=== PATIENT | male | born 1950 | race Caucasian/White ===

== ENCOUNTER → 2017-06-18 | Outpatient (CLI) | payer MEDICARE, OTHER ==
[2017-06-18 14:05] LABS: AST (GOT) 24 U/L (15-37); BICARBONATE 21.8 MEQ/L (21.0-32.0); BLOOD UREA NITROGEN 23 MG/DL (7-18); CALCIUM 8.8 MG/DL (8.5-10.1); CHLORIDE 106 MEQ/L (98-107); CREATININE 1.29 MG/DL (0.60-1.30); GLOMERULAR FILTRATION RATE 55 ML/MIN (>89); GLUCOSE,RANDOM 107 MG/DL (74-106); SODIUM (NA) 136 MEQ/L (136-145)
[2017-06-18 14:06] LABS: ALT (GPT) 37 U/L (12-78); C-REACTIVE PROTEIN LESS THAN 0.29 MG/DL (0.00-0.30)
[2017-06-18 14:08] LABS: AUTOMATED NEUTROPHIL # 5.7 TH/MM3 (1.8-7.7); BASOPHIL # 0.1 TH/MM3 (0-0.2); BASOPHIL % 0.7 % (0.0-2.0); EOSINOPHIL # 0.1 TH/MM3 (0-0.4); EOSINOPHIL % 1.4 % (0.0-4.0); HEMOGLOBIN 17.1 GM/DL (13.0-17.0); LYMPH % 13.1 % (9.0-44.0); MEAN CELL VOLUME 90.7 FL (80.0-100.0); MEAN CORPUSCULAR HEMOGLOBIN 31.7 PG (27.0-34.0); MEAN CORPUSCULAR HGB CONC 34.9 % (32.0-36.0); MONO % 9.4 % (0.0-8.0); MONOCYTE # 0.7 TH/MM3 (0-0.9); NEUT % 75.4 % (16.0-70.0); PLATELET COUNT 181 TH/MM3 (150-450); RED CELL DISTRIBUTION WIDTH 13.2 % (11.6-17.2); WHITE BLOOD COUNT 7.6 TH/MM3 (4.0-11.0)
[2017-06-18 14:32] LABS: ALKALINE PHOSPHATASE 88 U/L (45-117); TOTAL BILIRUBIN ADULT 0.7 MG/DL (0.2-1.0); TOTAL PROTEIN 6.8 GM/DL (6.4-8.2)
[2017-06-18 14:41] LABS: WESTERGREN SEDIMENTATION RATE 1 mm/hr (0-20)
[2017-06-20 21:15] LABS: ALB/GLOB RATIO (SPE) 2.15 (1.39-2.23)
== END ==
LOC: PLAB 09:35
DX: M47.9 Spondylosis, unspecified (principal); G62.9 Polyneuropathy, unspecified
CPT/HCPCS: 36415; 80053; 82607; 83036; 84165; 85025; 85306; 85652; 86038; 86140; 86617

== ENCOUNTER 2017-07-20 12:35 | Emergency (ER) | payer MEDICARE, OTHER ==
[~2017-07-20] VITALS: Ht 182.9 cm; Wt 116.6 kg
[2017-07-20 13:17] VITALS: BP 125/80; PULSE 54; RESP 18; TEMP 98.3
[2017-07-20] MEDS ORDERED: ASPI-516 CHEW (14:13)
[2017-07-20] MEDS ORDERED: ROSU10 PO (14:13)
[2017-07-20] MEDS ORDERED: ALLO100T PO (14:13)
[2017-07-20] MEDS ORDERED: BYST5TAB2 PO (14:13)
[2017-07-20] MEDS ORDERED: SODIUM CHLORIDE 0.9% FLUSH 10 ML FLUSH IVF PRN (14:15)
[2017-07-20] MEDS ORDERED: ASPIRIN 81 MG CHEW TAB PO ONE (14:15)
--- NOTE | 2017-07-20 14:18 | PD ---
HPI Chief Complaint: Cold / Flu Symptoms Time Seen by Provider: 13:46 Travel History International Travel<30 days: No Contact w/Intl Traveler<30days: No Traveled to known affect area: No History of Present Illness HPI 66-year-old male presents to the emergency room for evaluation of myalgias, malaise, sweats, chills, and nonproductive cough for the past 4 days. Patient states he has some sort of bug. He has not actually taken his temperature. Denies significant congestion or sore throat. Cough is not severe. He has associated chest pain on the left side. Denies any cardiac history. No MIs. States he hasn't had a stress test but doesn't know when the last one was. Patient states he is active. He has history of hypertension and hypercholesterolemia. [facility] Social History Tobacco Use: No Allergies-Medications (Allergen,Severity, Reaction): Coded Allergies: No Known Allergies (Unverified , 07/20/17) Reported Meds & Prescriptions Reported Meds & Active Scripts Active Reported Aspirin 81 Mg Chew 81 Mg CHEW DAILY Allopurinol 100 Mg Tab 100 Mg PO DAILY Bystolic (Nebivolol) 5 Mg Tab 5 Mg PO DAILY Crestor (Rosuvastatin Calcium) 10 Mg Tab 10 Mg PO DAILY Review of Systems Except as stated in HPI: all other systems reviewed are Neg Physical Exam Narrative GENERAL: Well-nourished, well-developed male in no acute distress. Afebrile. Ambulatory. SKIN: Focused skin assessment warm/dry. HEAD: Normocephalic. EYES: No scleral icterus. No injection or drainage. NECK: Supple, trachea midline. No JVD or lymphadenopathy. ENT: Mucosa pink and moist. Mild erythema without edema or exudates. No uvular edema. No uvular, palatal, or tonsillar deviation. Airway patent. Nasal turbinates appear normal without nasal blood, purulent drainage or septal hematoma. EARS: Bilateral pinnae and external canals appear within normal limits. Bilateral tympanic membranes without erythema, dullness or perforation. CARDIOVASCULAR: Slightly bradycardic. Regular rhythm without murmurs, gallops, or rubs. RESPIRATORY: Breath sounds equal bilaterally. No accessory muscle use. Data Data Last Documented VS Vital Signs Date Time Temp Pulse Resp B/P (MAP) Pulse Ox O2 Delivery O2 Flow Rate FiO2 07/20/17 15:25 16 97 Nasal Cannula 2.00 07/20/17 15:25 50 07/20/17 13:17 98.3 Orders Orders Electrocardiogram (07/20/17 14:01) B-Type Natriuretic Peptide (07/20/17 14:01) Ckmb (Isoenzyme) Profile (07/20/17 14:01) Complete Blood Count With Diff (07/20/17 14:01) Comprehensive Metabolic Panel (07/20/17 14:01) Prothrombin Time / Inr (Pt) (07/20/17 14:01) Act Partial Throm Time (Ptt) (07/20/17 14:01) Troponin I (07/20/17 14:01) Ecg Monitoring (07/20/17 14:01) Bilateral Bp Monitoring (07/20/17 14:01) Iv Access Insert/Monitor (07/20/17 14:01) Oximetry (07/20/17 14:01) Oxygen Administration (07/20/17 14:01) Aspirin Chew (Aspirin Chew) (07/20/17 14:15) Sodium Chloride 0.9% Flush (Ns Flush) (07/20/17 14:15) Chest, Pa & Lat (07/20/17 14:01) Influenzae A/B Antigen (07/20/17 14:09) Labs Laboratory Tests Test 07/20/17 15:10 White Blood Count 8.4 TH/MM3 Red Blood Count 5.23 MIL/MM3 Hemoglobin 15.8 GM/DL Hematocrit 47.5 % Mean Corpuscular Volume 90.9 FL Mean Corpuscular Hemoglobin 30.2 PG Mean Corpuscular Hemoglobin Concent 33.2 % Red Cell Distribution Width 12.2 % Platelet Count 170 TH/MM3 Mean Platelet Volume 8.9 FL Neutrophils (%) (Auto) 77.1 % Lymphocytes (%) (Auto) 10.2 % Monocytes (%) (Auto) 10.4 % Eosinophils (%) (Auto) 1.5 % Basophils (%) (Auto) 0.8 % Neutrophils # (Auto) 6.4 TH/MM3 Lymphocytes # (Auto) 0.9 TH/MM3 Monocytes # (Auto) 0.9 TH/MM3 Eosinophils # (Auto) 0.1 TH/MM3 Basophils # (Auto) 0.1 TH/MM3 CBC Comment AUTO DIFF Differential Comment AUTO DIFF CONFIRMED Prothrombin Time 10.9 SEC Prothromb Time International Ratio 1.0 RATIO Activated Partial Thromboplast Time 23.1 SEC Blood Urea Nitrogen 16 MG/DL Creatinine 1.20 MG/DL Random Glucose 101 MG/DL Total Protein 6.6 GM/DL Albumin 3.4 GM/DL Calcium Level 8.5 MG/DL Alkaline Phosphatase 83 U/L Aspartate Amino Transf (AST/SGOT) 23 U/L Alanine Aminotransferase (ALT/SGPT) 32 U/L Total Bilirubin 0.9 MG/DL Sodium Level 137 MEQ/L Potassium Level 3.9 MEQ/L Chloride Level 104 MEQ/L Carbon Dioxide Level 24.9 MEQ/L Anion Gap 8 MEQ/L Estimat Glomerular Filtration Rate 60 ML/MIN Total Creatine Kinase 53 U/L Troponin I LESS THAN 0.02 NG/ML B-Type Natriuretic Peptide 37 PG/ML MDM Medical Decision Making Medical Screen Exam Complete: Yes Emergency Medical Condition: Yes Medical Record Reviewed: Yes Differential Diagnosis Pneumonia, [place], CAD, bronchitis, URI, influenza Narrative Course 66-year-old male with history of hypertension and hypercholesterolemia presents to the emergency room for evaluation of myalgias, malaise, mildly productive cough, and left-sided chest pain for the past 4 days. He has had associated chills, sweats but has not actually taken his temperature. Patient is afebrile and well-appearing in the emergency room. Resting comfortably. In no distress. Lungs sounds clear and equal bilaterally. Workup was initiated to evaluate for pneumonia versus influenza. Cardiac enzymes obtained to evaluate for chest pain though this sounds pleuritic in nature. Because it has been ongoing for the past several days, one negative set is reassuring. I spoke to my attending physician, Dr. Lomas, who agrees. CBC and CMP are completely unremarkable. Troponin and BNP are unremarkable. Influenza is negative. Chest x-ray shows bilateral lower lobe atelectasis. EKG shows sinus bradycardia with a rate of [address] changes. Signed off to my attending physician. Likely viral upper respiratory infection/bronchitis. Patient is stable for outpatient follow-up. He was told to follow-up or return for worsening symptoms. He understands and agrees to plan. Diagnosis Primary Impression: Bronchitis Referrals: Primary Care Physician Additional Instructions: Rest and drink plenty of fluids. Take ibuprofen with food as directed, as needed for pain. Follow-up with a primary care physician. Return to the emergency room for worsening symptoms. Disposition: DISCHARGE HOME Condition: Stable Rozina Day Jul 20, 2017 14:18
[2017-07-20 15:10] VITALS: PULSE 50; RESP 16; O2SAT 95
--- NOTE | 2017-07-20 15:16 | RADRPT ---
EXAM DATE/TIME: 07/20/2017 14:28 [facility] COMPARISON: No previous studies available for comparison. INDICATIONS : Chest pain. MEDICAL HISTORY : None. SURGICAL HISTORY : None. ENCOUNTER: Initial ACUITY: 1 day PAIN SCORE: 6/10 LOCATION: Bilateral chest FINDINGS: There are horizontal linear areas of atelectasis or scarring in the lower lungs bilaterally, left mor e prominent than on the right. No focal areas of consolidation. The heart is normal size. Mild tor tuosity descending thoracic aorta. Both hemidiaphragms well delineated. CONCLUSION: Bilateral lower lobe linear scarring or atelectasis. Ed Marcelino MD on July 20, 2017 at 15:14 Board Certified Radiologist. This report was verified electronically.
[2017-07-20 15:25] VITALS: BP_SYST 135; BP_SYST 138; BP_DIAS 74; BP_DIAS 80; PULSE 50; RESP 16; O2SAT 97
[2017-07-20 15:25] LABS: AUTOMATED NEUTROPHIL # 6.4 TH/MM3 (1.8-7.7); BASOPHIL # 0.1 TH/MM3 (0-0.2); BASOPHIL % 0.8 % (0.0-2.0); EOSINOPHIL # 0.1 TH/MM3 (0-0.4); EOSINOPHIL % 1.5 % (0.0-4.0); HEMATOCRIT 47.5 % (39.0-51.0); LYMPH % 10.2 % (9.0-44.0); LYMPHOCYTE # 0.9 TH/MM3 (1.0-4.8); MEAN CELL VOLUME 90.9 FL (80.0-100.0); MEAN CORPUSCULAR HEMOGLOBIN 30.2 PG (27.0-34.0); MEAN CORPUSCULAR HGB CONC 33.2 % (32.0-36.0); MONO % 10.4 % (0.0-8.0); NEUT % 77.1 % (16.0-70.0); PLATELET COUNT 170 TH/MM3 (150-450); RED BLOOD COUNT 5.23 MIL/MM3 (4.50-5.90); RED CELL DISTRIBUTION WIDTH 12.2 % (11.6-17.2); WHITE BLOOD COUNT 8.4 TH/MM3 (4.0-11.0)
[2017-07-20 15:27] LABS: HEMO FLAGS AUTO DIFF
[2017-07-20 15:35] LABS: CHLORIDE 104 MEQ/L (98-107); POTASSIUM 3.9 MEQ/L (3.5-5.1); SODIUM (NA) 137 MEQ/L (136-145)
[2017-07-20 15:38] LABS: ANION GAP 8 MEQ/L (5-15); BICARBONATE 24.9 MEQ/L (21.0-32.0); BLOOD UREA NITROGEN 16 MG/DL (7-18)
[2017-07-20 15:41] LABS: ALT (GPT) 32 U/L (12-78)
[2017-07-20 15:42] LABS: AST (GOT) 23 U/L (15-37); GLOMERULAR FILTRATION RATE 60 ML/MIN (>89)
[2017-07-20 15:43] LABS: TOTAL BILIRUBIN ADULT 0.9 MG/DL (0.2-1.0)
[2017-07-20 15:44] LABS: ALKALINE PHOSPHATASE 83 U/L (45-117)
[2017-07-20 15:45] LABS: APTT (PATIENT) 23.1 SEC (24.3-30.1); PROTHROMBIN TIME - PATIENT 10.9 SEC (9.8-11.6)
[2017-07-20 15:50] LABS: CREATINE KINASE 53 U/L (39-308)
[2017-07-20 15:54] LABS: SCAN/DIFF AUTO DIFF CONFIRMED
[2017-07-20] MEDS ORDERED: PRED20 PO (16:09)
[2017-07-20] MEDS ORDERED: GUAI100S5 PO (16:09)
[2017-07-20 16:33] VITALS: BP 148/80
--- NOTE | 2017-07-20 21:06 | EKG ---
Date Performed: 07/20/2017 Time Performed: 14:14:37 PTAGE: 66 years EKG: SINUS BRADYCARDIA BORDERLINE ECG NO PREVIOUS TRACING DOCTOR: Neil Markham Interpretating Date/Time 07/20/2017 21:05:47
== END 2017-07-20 16:35 | disposition home or self-care (01) ==
LOC: PHED 12:35
DX: J40 Bronchitis, not specified as acute or chronic (principal); E78.00 Pure hypercholesterolemia, unspecified; I10 Essential (primary) hypertension
CPT/HCPCS: 71020; 80053; 82550; 83880; 84484; 85025; 85610; 85730; 87804; 93005; 99285

== ENCOUNTER 2017-11-22 20:53 | Inpatient (IN) | payer SELFPAY ==
[~2017-11-22] VITALS: Ht 182.9 cm; Wt 129.7 kg
[~2017-11-22 20:53] MED LIST: ALLO100T PO; ASPI-516 CHEW; BYST5TAB2 PO; EPINEPHrine HCL (1:10,000) 1 MG/10 ML SYRINGE IV ONE; GUAI100S5 PO; NOREPINEPHRINE 4 MG/4 ML AMP IV ONE; PRED20 PO; ROSU10 PO; SODIUM BICARBONATE 8.4% INJ 50 MEQ/50 ML SYR IV ONE
[2017-11-22 20:55] VITALS: O2SAT 0
[2017-11-22] MEDS: NOREPINEPHRINE-DEXTROSE DRIP 250 ML IV PRN (21:26)
[2017-11-22 21:34] VITALS: O2SAT 80
[2017-11-22] MEDS ORDERED: HEPARIN-D5W 25,000 U/250 ML 250 ML IV PRN ×4 (21:45→22:00)
[2017-11-22] MEDS ORDERED: HEPARIN SODIUM - IV 10,000 UNITS/10 ML VIAL IV ONE (21:45)
[2017-11-22] MEDS ORDERED: HEPARIN - 10,000 UNITS/ML IV ADDITIVE IV PUSH STA (21:57)
[2017-11-22] MEDS ORDERED: SODIUM CHLORIDE 0.9% FLUSH 10 ML FLUSH IV FLUSH PRN (22:00)
[2017-11-22] MEDS ORDERED: CHLORHEXIDINE GLUCONATE 2 % 1 PACK (2 CLOTHS) TOP PRN (22:00)
[2017-11-22] MEDS ORDERED: MISCELLANEOUS NURSING INFORMATION XX SCH (22:00)
[2017-11-22] MEDS ORDERED: SENNOSIDES 8.6 MG TAB PO PRN (22:00)
[2017-11-22] MEDS ORDERED: SODIUM CHLOR 0.9% 1000 ML INJ 1,000 ML IV ONE ×3 (22:00)
[2017-11-22] MEDS ORDERED: ACETAMINOPHEN 325 MG TAB PO PRN (22:00)
[2017-11-22] MEDS ORDERED: BISACODYL 10 MG SUPP RECTAL PRN (22:00)
[2017-11-22] MEDS ORDERED: ONDANSETRON HCL 4 MG/2 ML VIAL IV PUSH PRN (22:00)
[2017-11-22] MEDS ORDERED: RESP: ALBUTEROL 2.5 MG/IPRATROPIUM 0.5 MG NEB (PRN) INH (22:00)
[2017-11-22] MEDS ORDERED: TERBUTALINE INJ 1 MG/ML AMP SQ PRN (22:00)
[2017-11-22] MEDS ORDERED: HEPARIN 25,000 UNITS-D5W 250 ML - PREMIX IV PRN (22:00)
[2017-11-22] MEDS ORDERED: MORPHINE SULFATE 4 MG/ML INJ IV PUSH PRN (22:00)
[2017-11-22] MEDS ORDERED: LACTULOSE SYRUP 20 GM/30 ML CUP PO PRN (22:00)
[2017-11-22] MEDS: RESP: ALBUTEROL 2.5 MG/IPRATROPIUM 0.5 MG NEB (SCH) INH (22:00)
[2017-11-22] MEDS ORDERED: LORazepam 2 MG/ML VIAL IV PUSH PRN (22:00)
[2017-11-22] MEDS ORDERED: MAGNESIUM HYDROXIDE SUSP 30 ML CUP PO PRN (22:00)
--- NOTE | 2017-11-22 22:15 | HHI.HP ---
HPI Service Critical Care Medicine Primary Care Physician Unknown Admission Diagnosis Postarrest, respiratory failure Diagnosis: Travel History International Travel<30 Days: No Contact w/Intl Traveler <30 Da: No Traveled to Known Affected Are: No History of Present Illness 67-year-old gentleman was brought as a cardiac arrest. According to chart review and report the patient has a history of hypertension. He has been having breathing problems for past couple of months, possibly some hemoptysis. [place]. He was at the [employer] when he got more short of breath walking up the stairs. EMS arrived and found him find him short of breath or respiratory difficulties. He was intubated by EMS. In route he lost pulses and they started CPR. Has been PEA since that time. In the emergency department he underwent prolonged CPR before he regained spontaneous circulation. The patient received a TPA infusion during the CPR since the pulmonary emboli was highly suspected. This was confirmed by CT angiogram obtained shortly after. Review of Systems ROS Unobtainable patient is comatose and intubated Past Family Social History Allergies: Coded Allergies: No Allergy Information Available (Unverified , 11/22/17) Past Medical History Unobtainable Past Surgical History Unobtainable Reported Medications Unobtainable Active Ordered Medications Current Medications Medications (Trade) Dose Ordered Sig/Gurdeep Route PRN Reason Start Time Stop Time Status Last Admin Dose Admin Norepinephrine Bitartrate 250 ml @ 7.5 mls/hr TITRATE PRN IV Blood pressure management 11/22/17 22:00 11/22/17 21:26 Terbutaline Sulfate (Brethine Inj) 1 mg UNSCH PRN SQ For Extravasation 11/22/17 22:00 Heparin Sodium (Porcine) (Heparin Inj) 5,000 units UNSCH PRN IV PUSH APTT LESS THAN 25 11/23/17 04:00 Heparin Sodium (Porcine) (Heparin Inj) 2,500 units UNSCH PRN IV PUSH APTT 25 TO 39 11/23/17 04:00 Heparin Sodium/ Dextrose 250 ml @ 18 mls/hr TITRATE PRN IV Coagulation Management 11/22/17 22:00 11/22/17 22:43 Sodium Chloride (NS Flush) 2 ml UNSCH PRN IV FLUSH FLUSH AFTER USING IV ACCESS 11/22/17 22:00 Sodium Chloride (NS Flush) 2 ml BID IV FLUSH 11/23/17 09:00 Acetaminophen (Tylenol) 650 mg Q6H PRN PO PAIN 1-5 AND/OR FEVER >101F 11/22/17 22:00 Morphine Sulfate (Morphine Inj) 2 mg Q2H PRN IV PUSH PAIN SCALE 6 TO 10 11/22/17 22:00 Famotidine (Pepcid Inj) 20 mg Q12HR IV PUSH 11/23/17 09:00 Lorazepam (Ativan Inj) 1 mg Q1H PRN IV PUSH Agitation/Sedation 11/22/17 22:00 Artificial Tears (Tears Naturale Opth Soln) 1 drop TID EACH EYE 11/23/17 09:00 Ondansetron HCl (Zofran Inj) 4 mg Q6H PRN IV PUSH NAUSEA OR VOMITING 11/22/17 22:00 Albuterol/ Ipratropium (Duoneb Neb) 1 ampule Q6HR NEB INH 11/22/17 22:00 Albuterol/ Ipratropium (Duoneb Neb) 1 ampule Q2HR NEB PRN INH WHEEZING 11/22/17 22:00 Miscellaneous Information 1 Q361D XX 11/22/17 22:00 11/22/17 22:00 Chlorhexidine Gluconate (Chlorhexidine 2% Cloth) 3 pack Taper DAILY@04 TOP 11/23/17 04:00 11/19/18 03:59 Chlorhexidine Gluconate (Chlorhexidine 2% Cloth) 3 pack UNSCH PRN TOP HYGIENIC CARE 11/22/17 22:00 Senna/Docusate Sodium (Paulina-Colace) 1 tab BID PO 11/23/17 09:00 Magnesium Hydroxide (Milk Of Magnesia Liq) 30 ml Q12H PRN PO Mild constipation 11/22/17 22:00 Sennosides (Senokot) 17.2 mg Q12H PRN PO Moderate constipation 11/22/17 22:00 Bisacodyl (Dulcolax Supp) 10 mg DAILY PRN RECTAL SEVERE CONSITIPATION 11/22/17 22:00 Lactulose (Lactulose Liq) 30 ml DAILY PRN PO SEVERE CONSITIPATION 11/22/17 22:00 Chlorhexidine Gluconate (Peridex 0.12% Liq) 15 ml BID@08,20 MT 11/23/17 08:00 Midazolam HCl 100 ml @ 2 mls/hr TITRATE PRN IV SEDATION 11/22/17 23:00 Fentanyl Citrate 250 ml @ 5 mls/hr TITRATE PRN IV SEDATION 11/22/17 23:00 11/23/17 01:36 Sodium Bicarbonate 150 meq/Dextrose 1,150 ml @ 100 mls/hr [id number] IV 11/22/17 23:00 11/23/17 00:38 Propofol 100 ml @ 0 mls/hr TITRATE PRN IV SEDATION 11/22/17 22:30 11/22/17 22:34 Family History Unobtainable Social History Unobtainable Physical Exam Vital Signs Vital Signs Date Time Temp Pulse Resp B/P (MAP) Pulse Ox O2 Delivery O2 Flow Rate FiO2 11/23/17 01:11 139 94/64 11/22/17 23:54 100 100 Physical Exam GENERAL: Elderly obese gentleman, cyanotic, on respiratory support SKIN: Warm and dry. HEAD: Normocephalic. EYES: No scleral icterus. No injection or drainage. NECK: Supple, trachea midline. No JVD or lymphadenopathy. CARDIOVASCULAR: Regular rate and rhythm without murmurs, gallops, or rubs. RESPIRATORY: Breath sounds equal bilaterally. No accessory muscle use. GASTROINTESTINAL: Abdomen soft, non-tender, nondistended. MUSCULOSKELETAL: No cyanosis, or edema. BACK: Nontender without obvious deformity. NEURO EXAM: GCS: 3T Mental Status: The patient is comatose and intubated. Pupils are 3 mm and brisk bilaterally Laboratory Laboratory Tests Test 11/22/17 21:45 11/22/17 21:50 Caprini VTE Risk Assessment Caprini VTE Risk Assessment: Mod/High Risk (score >= 2) Caprini Risk Assessment Model Point Value = 1 Point Value = 2 Point Value = 3 Point Value = 5 Age 41-60 Minor surgery BMI > 25 kg/m2 Swollen legs Varicose veins or History of unexplained or recurrent spontaneous Oral contraceptives or hormone replacement Sepsis (< 1 month) Serious lung disease, including pneumonia (< 1 month) Abnormal pulmonary function Acute myocardial infarction Congestive heart failure (< 1 month) History of inflammatory bowel disease Medical patient at bed rest Age 61-74 Arthroscopic surgery Major open surgery (> 45 min) Laparoscopic surgery (> 45 min) Malignancy Confined to bed (> 72 hours) Immobilizing plaster cast Central venous access Age >= 75 History of VTE Family history of VTE Factor V Leiden Prothrombin [id number] Lupus anticoagulant Anticardiolipin antibodies Elevated serum homocysteine Heparin-induced thrombocytopenia Other congenital or acquired thrombophilia Stroke (< 1 month) Elective arthroplasty Hip, pelvis, or leg fracture Acute spinal cord injury (< 1 month) Prophylaxis Regimen Total Risk Factor Score Risk Level Prophylaxis Regimen 0-1 Low Early ambulation 2 Moderate Order ONE of the following: *Sequential Compression Device (SCD) *Heparin 5000 units SQ BID 3-4 Higher Order ONE of the following medications: *Heparin 5000 units SQ TID *Enoxaparin/Lovenox 40 mg SQ daily (WT < 150 kg, CrCl > 30 mL/min) *Enoxaparin/Lovenox 30 mg SQ daily (WT < 150 kg, CrCl > 10-29 mL/min) *Enoxaparin/Lovenox 30 mg SQ BID (WT < 150 kg, CrCl > 30 mL/min) AND/OR *Sequential Compression Device (SCD) 5 or more Highest Order ONE of the following medications: *Heparin 5000 units SQ TID (Preferred with Epidurals) *Enoxaparin/Lovenox 40 mg SQ daily (WT < 150 kg, CrCl > 30 mL/min) *Enoxaparin/Lovenox 30 mg SQ daily (WT < 150 kg, CrCl > 10-29 mL/min) *Enoxaparin/Lovenox 30 mg SQ BID (WT < 150 kg, CrCl > 30 mL/min) AND *Sequential Compression Device (SCD) Assessment and Plan Assessment and Plan Respiratory failure Multiple bilateral pulmonary emboli -Status post TPA administration -Followed by heparin drip per protocol -2D echo pending -Continue mechanical ventilation -Vent bundle Cardiogenic shock -Levophed and vasopressin to keep MAP above 65 -2D echo -Monitor series of troponins and EKG Lactic acidosis -Due to above -Monitor trend -IV hydration Acute kidney injury -Dehydration -Unknown baseline -Strict I's and O -IV fluid resuscitation -Monitor trend of creatinine and electrolyte DVT GI prophylaxis -Desmond's and SCDs -Heparin drip -Pepcid Critical Care: The total critical care time was 35 minutes. Time to perform other separately billable procedures was not included in the critical care time. Adelfo Wheatley MD Nov 22, 2017 22:15
--- NOTE | 2017-11-22 22:18 | RADRPT ---
EXAM DATE/TIME: 11/22/2017 21:53 [facility] COMPARISON: No previous studies available for comparison. INDICATIONS : Post procedure. MEDICAL HISTORY : None. SURGICAL HISTORY : None. ENCOUNTER: Initial ACUITY: 1 day PAIN SCORE: Non-responsive. LOCATION: Bilateral chest FINDINGS: Endotracheal tube tip at the inferior margin of the clavicles. Lungs are clear. Cardiomegaly. Osseous structures are intact. CONCLUSION: ET tube as above. Lang Zabala MD on November 22, 2017 at 22:15 Board Certified Radiologist. This report was verified electronically.
[2017-11-22 22:27] LABS: AUTOMATED NEUTROPHIL # 5.6 TH/MM3 (1.8-7.7); BASOPHIL % 0.5 % (0.0-2.0); EOSINOPHIL # 0.1 TH/MM3 (0-0.4); EOSINOPHIL % 1.1 % (0.0-4.0); HEMATOCRIT 40.1 % (39.0-51.0); HEMOGLOBIN 12.9 GM/DL (13.0-17.0); LYMPHOCYTE # 3.5 TH/MM3 (1.0-4.8); MEAN CELL VOLUME 97.5 FL (80.0-100.0); MEAN CORPUSCULAR HEMOGLOBIN 31.4 PG (27.0-34.0); MEAN CORPUSCULAR HGB CONC 32.2 % (32.0-36.0); MEAN PLATELET VOLUME 8.5 FL (7.0-11.0); MONO % 4.9 % (0.0-8.0); MONOCYTE # 0.5 TH/MM3 (0-0.9); NEUT % 57.5 % (16.0-70.0); PLATELET COUNT 88 TH/MM3 (150-450); RED BLOOD COUNT 4.11 MIL/MM3 (4.50-5.90); RED CELL DISTRIBUTION WIDTH 14.5 % (11.6-17.2); WHITE BLOOD COUNT 9.7 TH/MM3 (4.0-11.0)
[2017-11-22] MEDS ORDERED: PROPOFOL 1000 MG/100 ML INJ 100 ML IV PRN (22:30)
--- NOTE | 2017-11-22 22:32 | PD ---
HPI Chief Complaint: Code Blue Time Seen by Provider: 21:41 Travel History International Travel<30 days: No Contact w/Intl Traveler<30days: No Traveled to known affect area: No History of Present Illness HPI This is an approximately [age]bf[age]-old man, brought in in cardiac arrest. According to EMS, patient has a history of hypertension only. Been having some breathing problems in the past couple months, possibly some hemoptysis. [place] from [place]. He was at the [facility] [place] when he got more short of breath walking up the stairs. EMS arrived to find him short of breath or respiratory difficulties. He was intubated by EMS. In route he lost pulses and they started CPR. Has been PEA since that time. No other history is available. History Past Medical History Narrative Medical Hypertension Social History Tobacco Use: No Allergies-Medications (Allergen,Severity, Reaction): Coded Allergies: No Allergy Information Available (Unverified , 11/22/17) Review of Systems Except as stated in HPI: all other systems reviewed are Neg Physical Exam Narrative GENERAL: Elderly cyanotic obese male. Obtunded. SKIN: Mottled and cool. HEAD: Atraumatic. Normocephalic. EYES: Pupils equal and round. No scleral icterus. No injection or drainage. ENT: No nasal bleeding or discharge. Mucous membranes pink and moist. NECK: Trachea midline. No JVD. CARDIOVASCULAR: PEA. Regular narrow rhythm. RESPIRATORY: Some spontaneous respiratory effort. GASTROINTESTINAL: Abdomen soft, non-tender, nondistended. Hepatic and splenic margins not palpable. MUSCULOSKELETAL: No obvious deformities. Asymmetric edema, especially the right lower extremity NEUROLOGICAL: Obtunded. Data Data Last Documented VS Vital Signs Date Time Temp Pulse Resp B/P (MAP) Pulse Ox O2 Delivery O2 Flow Rate FiO2 11/22/17 21:34 80 100 11/22/17 21:26 122 133/89 Orders Orders Cbc No Diff, Includes Plts (11/25/17 06:00) Chest, Single Ap (11/22/17 ) Ct Pulmonary Angiogram (11/22/17 ) Iv Access Insert/Monitor (11/22/17 21:46) Complete Blood Count With Diff (11/22/17 21:46) Comprehensive Metabolic Panel (11/22/17 21:46) Arterial Blood Gas (Abg) (11/22/17 ) Troponin I (11/22/17 21:46) Admit Order (Ed Use Only) (11/22/17 ) Electrocardiogram (11/22/17 ) ^ Infusion (11/22/17 ) Norepinephrine-Dextrose Drip (Levophed-D (11/22/17 22:00) Terbutaline Inj (Brethine Inj) (11/22/17 22:00) Lactic Acid Sepsis Protocol (11/22/17 21:47) Minoo-Gastric Tube Insert/Mon (11/22/17 21:48) Sodium Chlor 0.9% 1000 Ml Inj (Ns 1000 M (11/22/17 22:00) Sodium Chlor 0.9% 1000 Ml Inj (Ns 1000 M (11/22/17 22:00) Sodium Chlor 0.9% 1000 Ml Inj (Ns 1000 M (11/22/17 22:00) Labs Laboratory Tests Test 11/22/17 21:40 11/22/17 21:45 Blood Gas Puncture Site ART LINE Blood Gas Patient Temperature 98.6 Blood Gas HCO3 11 mmol/L Blood Gas Base Excess -20.6 mmol/L Blood Gas Oxygen Saturation 88 % Arterial Blood pH 6.82 Arterial Blood Partial Pressure CO2 72 mmHg Arterial Blood Partial Pressure O2 101 mmHG Arterial Blood Oxygen Content 16.0 Vol % Arterial Blood Carboxyhemoglobin 0.0 % Arterial Blood Methemoglobin 0.8 % Blood Gas Hemoglobin 12.9 G/DL Oxygen Delivery Device VENTILATOR Blood Gas Ventilator Setting AC/16/600/8 PEEP Blood Gas Inspired Oxygen 100 % White Blood Count 9.7 TH/MM3 Red Blood Count 4.11 MIL/MM3 Hemoglobin 12.9 GM/DL Hematocrit 40.1 % Mean Corpuscular Volume 97.5 FL Mean Corpuscular Hemoglobin 31.4 PG Mean Corpuscular Hemoglobin Concent 32.2 % Red Cell Distribution Width 14.5 % Platelet Count 88 TH/MM3 Mean Platelet Volume 8.5 FL Neutrophils (%) (Auto) 57.5 % Lymphocytes (%) (Auto) 36.0 % Monocytes (%) (Auto) 4.9 % Eosinophils (%) (Auto) 1.1 % Basophils (%) (Auto) 0.5 % Neutrophils # (Auto) 5.6 TH/MM3 Lymphocytes # (Auto) 3.5 TH/MM3 Monocytes # (Auto) 0.5 TH/MM3 Eosinophils # (Auto) 0.1 TH/MM3 Basophils # (Auto) 0.0 TH/MM3 CBC Comment AUTO DIFF Differential Total Cells Counted 100 Neutrophils % (Manual) 43 % Band Neutrophils % 8 % Lymphocytes % 37 % Monocytes % 5 % Eosinophils % 1 % Basophils % 1 % Neutrophils # (Manual) 5.4 TH/MM3 Metamyelocytes 3 % Myelocytes 2 % Differential Comment FINAL DIFF MANUAL Atypical Lymphocytes % Platelet Estimate LOW Platelet Morphology Comment NORMAL Prothrombin Time 35.4 SEC Prothromb Time International Ratio 3.5 RATIO Activated Partial Thromboplast Time 128.8 SEC MDM Medical Decision Making Medical Screen Exam Complete: Yes Emergency Medical Condition: Yes Interpretation(s) Review of EKG: Sinus tachycardia, right bundle branch block with deep as well as in 1 to could suggest RV strain, lateral ST depressions it could suggest myocardial injury and ischemia. Chest x-ray: Endotracheal tube at the inferior margin of the clavicles. LABS: AB.8 2/101/11, base excess -20 Differential Diagnosis Hypotension, pneumothorax, tamponade, PE, other Narrative Course Patient arrived in cardiac arrest. History was shortness of breath and hemoptysis for a couple weeks, with worsening shortness of breath today, intubated on scene, and then PEA arrest in route. Patient's markedly cyanotic, maintains narrow complex regular heart rate PEA. Suspicious for PE. Continued ACLS. Verify tube placement. Perform bedside ultrasound showed no pneumothorax , heart with empty LV, possibly dilated RV, weak squeeze, no AAA, no fluid in the abdomen. Given concern for PE in the setting of PEA arrest, patient was bolused 50 mg of IV TPA, followed by a second bolus of IV TPA 15 minutes later. High-quality CPR was continued. Patient was given IV fluids, continued epinephrine. We also did a "dirty epi "drip. Patient maintain pulse ox in the 70s, end-tidal CO2 initially in the teens. Following TPA end-tidal CO2 increase in his 20s and 30s, the patient still not without palpable pulses. Continued high-quality CPR, epinephrine, and Ambu bag ventilation. After about 40 minutes of arrival to the emergency department, 10 minutes after the second bolus of TPA, patient regained pulses. Left femoral arterial line was placed without difficulty. I felt this was necessary despite the TPA because of his marked hemodynamic instability. Epinephrine drip was switched for a norepinephrine drip. I spoke with Dr. Wheatley with the ICU. Patient was taken to CT scan which confirmed diffuse pulmonary emboli, and then taken to the ICU. Spoke with adult son, Raymond, is the healthcare proxy. Critical Care Narrative Aggregate critical care time was 75 minutes. Time to perform other separately billable procedures was not included in the critical care time. My time did not include minutes spent treating any other patients simultaneously or on activities that did not directly contribute to the patient's treatment. The services I provided to this patient were to treat and/or prevent clinically significant deterioration that could result in: , disability, unrecognized PE, hypoxic respiratory failure, other I provided critical care services requiring my management, as noted below: Chart data review, documentation time, medication orders and management, vital sign assessments/reviewing monitor data, ordering and reviewing lab tests, ordering and interpreting/reviewing x-rays and diagnostic studies, care of the patient and discussion of the patient with the admitting physicians. Diagnosis Primary Impression: Pulmonary embolism Additional Impression: Cardiac arrest Admitting Information Admitting Physician Requests: Admit Nam Moss MD Nov 22, 2017 22:32
[2017-11-22 22:37] LABS: INTERNATIONAL NORMALIZED RATIO 3.5 RATIO; PROTHROMBIN TIME - PATIENT 35.4 SEC (9.8-11.6)
[2017-11-22 22:42] LABS: ALBUMIN 2.2 GM/DL (3.4-5.0); BICARBONATE 15.5 MEQ/L (21.0-32.0); CALCIUM-PROTEIN CORRECTED 8.8 MG/DL (8.5-10.1); CREATININE 2.02 MG/DL (0.60-1.30); TOTAL BILIRUBIN ADULT 0.3 MG/DL (0.2-1.0); TOTAL PROTEIN 3.9 GM/DL (6.4-8.2); TROPONIN I 0.07 NG/ML (0.02-0.05)
[2017-11-22] MEDS ORDERED: SODIUM BICARBONATE 8.4% INJ 150 MEQ in DEXTROSE 5% IN WATE 1000ML INJ 1,000 ML IV SCH ×2 (23:00)
[2017-11-22] MEDS ORDERED: MIDAZOLAM 100 MG/100 ML INJ 100 ML IV PRN (23:00)
[2017-11-22 23:01] LABS: LACTIC ACID SEPSIS PROTOCOL 17.4 mmol/L (0.4-2.0)
[2017-11-22 23:28] LABS: BANDS 8 % (0-6); BASOPHILS 1 % (0-2); LYMPHOCYTES 37 % (9-44); METAMYELOCYTES 3 % (0-1); MONOCYTES 5 % (0-8); MYELOCYTES 2 % (0-0); NEUTROPHIL # MANUAL DIFF 5.4 TH/MM3 (1.8-7.7); POLYS (SEG NEUTROPHILS) 43 % (16-70)
[2017-11-22] MEDS ORDERED: IODIXANOL 320 MG/ML 10 ML VIAL (for Rad CT) IVCONTRAST ONE (23:35)
--- NOTE | 2017-11-22 23:43 | RADRPT ---
EXAM DATE/TIME: 11/22/2017 23:27 [facility] COMPARISON: No previous studies available for comparison. INDICATIONS : Short of breath. Code blue. IV CONTRAST: 75 cc Visipaque (iodixanol) IV RADIATION DOSE: 34.46 CTDIvol (mGy) MEDICAL HISTORY : Hypertension. SURGICAL HISTORY : None. ENCOUNTER: Initial ACUITY: 1 day PAIN SCALE: Non-responsive LOCATION: chest TECHNIQUE: Volumetric scanning of the chest was performed using a pulmonary embolism protocol MIP images were re constructed. Using automated exposure control and adjustment of the mA and/or kV according to patien t size, radiation dose was kept as low as reasonably achievable to obtain optimal diagnostic quality images. DICOM format image data is available electronically for review and comparison. Follow-up recommendations for detected pulmonary nodules are based at a minimum on nodule size and pa tient risk factors according to Fleischner Society Guidelines. FINDINGS: There are numerous pulmonary emboli in the lungs bilaterally. There is basilar dependent atelectasis. No significant effusion. No pneumothorax. No adenopathy. Mild coronary calcifications. No acute find ings in the upper abdomen. Small amount free fluid around the liver. CONCLUSION: 1. Numerous bilateral pulmonary emboli with basilar dependent atelectasis in the lungs. Fer Nielsen MD on November 22, 2017 at 23:39 Board Certified Radiologist. This report was verified electronically.
[2017-11-22 23:54] VITALS: O2SAT 100
[2017-11-23] VITALS (13 sets, daily range): BP systolic 71–93; BP diastolic 32–65; PULSE 129–148; RESP 30–41; TEMP 100.2–100.6; O2SAT 87–100
[2017-11-23 00:37] LABS: HEMATOCRIT 49.1 % (39.0-51.0); HEMOGLOBIN 16.1 GM/DL (13.0-17.0); MEAN CELL VOLUME 93.1 FL (80.0-100.0); MEAN CORPUSCULAR HEMOGLOBIN 30.5 PG (27.0-34.0); MEAN CORPUSCULAR HGB CONC 32.7 % (32.0-36.0); MEAN PLATELET VOLUME 8.2 FL (7.0-11.0); PLATELET COUNT 244 TH/MM3 (150-450); RED BLOOD COUNT 5.28 MIL/MM3 (4.50-5.90); RED CELL DISTRIBUTION WIDTH 14.1 % (11.6-17.2); WHITE BLOOD COUNT 27.6 TH/MM3 (4.0-11.0)
[2017-11-23 01:03] LABS: HEMATOCRIT 49.8 % (39.0-51.0); HEMOGLOBIN 16.8 GM/DL (13.0-17.0); MEAN CELL VOLUME 91.1 FL (80.0-100.0); MEAN CORPUSCULAR HEMOGLOBIN 30.7 PG (27.0-34.0); MEAN CORPUSCULAR HGB CONC 33.7 % (32.0-36.0); PLATELET COUNT 234 TH/MM3 (150-450); RED BLOOD COUNT 5.47 MIL/MM3 (4.50-5.90); RED CELL DISTRIBUTION WIDTH 14.2 % (11.6-17.2); WHITE BLOOD COUNT 25.3 TH/MM3 (4.0-11.0)
[2017-11-23 01:17] LABS: INTERNATIONAL NORMALIZED RATIO 3.6 RATIO; PROTHROMBIN TIME - PATIENT 36.6 SEC (9.8-11.6)
[2017-11-23] MEDS: fentaNYL DRIP 250 ML IV PRN ×2 (01:36→14:59)
[2017-11-23 01:58] LABS: INTERNATIONAL NORMALIZED RATIO 3.5 RATIO; PROTHROMBIN TIME - PATIENT 35.2 SEC (9.8-11.6)
[2017-11-23] MEDS: SODIUM CHLOR 0.9% 1000 ML INJ 1,000 ML IV SCH ×3 (02:20→04:41)
[2017-11-23] MEDS ORDERED: VASOPRESSIN 40 U/D5W 100 ML Shock/septic shock, do NOT titrate until taper off IV SCH ×2 (02:30)
[2017-11-23] MEDS: RESP: ALBUTEROL 2.5 MG/IPRATROPIUM 0.5 MG NEB (SCH) INH ×2 (03:28→09:25)
[2017-11-23] MEDS ORDERED: CHLORHEXIDINE GLUCONATE 2 % 1 PACK (2 CLOTHS) TOP SCH (04:00)
[2017-11-23] MEDS ORDERED: HEPARIN - 10,000 UNITS/ML IV ADDITIVE IV PUSH PRN ×2 (04:00→15:15)
[2017-11-23] MEDS ORDERED: HEPARIN SODIUM - IV 10,000 UNITS/10 ML VIAL IV PUSH PRN ×2 (04:00→15:15)
[2017-11-23 04:06] LABS: AUTOMATED NEUTROPHIL # 23.6 TH/MM3 (1.8-7.7); BASOPHIL # 0.1 TH/MM3 (0-0.2); BASOPHIL % 0.3 % (0.0-2.0); EOSINOPHIL % 0.2 % (0.0-4.0); HEMATOCRIT 47.4 % (39.0-51.0); LYMPH % 5.5 % (9.0-44.0); LYMPHOCYTE # 1.4 TH/MM3 (1.0-4.8); MEAN CELL VOLUME 91.6 FL (80.0-100.0); MEAN CORPUSCULAR HEMOGLOBIN 30.8 PG (27.0-34.0); MEAN CORPUSCULAR HGB CONC 33.7 % (32.0-36.0); MEAN PLATELET VOLUME 8.1 FL (7.0-11.0); MONO % 1.9 % (0.0-8.0); MONOCYTE # 0.5 TH/MM3 (0-0.9); NEUT % 92.1 % (16.0-70.0); PLATELET COUNT 216 TH/MM3 (150-450); RED BLOOD COUNT 5.18 MIL/MM3 (4.50-5.90); RED CELL DISTRIBUTION WIDTH 14.2 % (11.6-17.2); WHITE BLOOD COUNT 25.7 TH/MM3 (4.0-11.0)
--- NOTE | 2017-11-23 04:06 | RADRPT ---
EXAM DATE/TIME: 11/23/2017 03:53 [facility] COMPARISON: CHEST SINGLE AP, November 22, 2017, 21:53. INDICATIONS : Right internal jugular central line placement. MEDICAL HISTORY : None. SURGICAL HISTORY : None. ENCOUNTER: Subsequent ACUITY: 2 days PAIN SCORE: Non-responsive. LOCATION: Right chest FINDINGS: Endotracheal tube in good position. Right central line superior vena cava. NG in stomach. Mild basal airspace disease. No significant effusion. No pneumothorax. CONCLUSION: 1. Mild basilar atelectasis. Right central line in superior vena cava. No effusion or pneumothorax. Fer Nielsen MD on November 23, 2017 at 4:03 Board Certified Radiologist. This report was verified electronically.
[2017-11-23 04:42] LABS: ALBUMIN 2.6 GM/DL (3.4-5.0); BICARBONATE 15.4 MEQ/L (21.0-32.0); CALCIUM 6.3 MG/DL (8.5-10.1); CALCIUM-PROTEIN CORRECTED 7.5 MG/DL (8.5-10.1); CREATININE 2.45 MG/DL (0.60-1.30); MAGNESIUM 1.5 MG/DL (1.5-2.5); PHOSPHORUS 2.4 MG/DL (2.5-4.9); TOTAL PROTEIN 4.6 GM/DL (6.4-8.2)
[2017-11-23 04:51] LABS: TROPONIN I 10.3 NG/ML (0.02-0.05)
--- NOTE | 2017-11-23 04:52 | PD.PROCEDR ---
Procedure Note Procedure Central line placement A time-out was completed verifying correct patient, procedure, site, positioning , and special equipment if applicable. The patient was placed in a dependent position appropriate for central line placement based on the vein to be cannulated. The patients right neck was prepped and draped in sterile fashion. 1% Lidocaine was used to anesthetize the surrounding skin area. A triple lumen 9 -[place] Cordis catheter was introduced into the the internal jugular vein using the Seldinger technique and under ultrasound guidance. The catheter was threaded smoothly over the guide wire and appropriate blood return was obtained. Each lumen of the catheter was evacuated of air and flushed with sterile saline. The catheter was then sutured in place to the skin and a sterile dressing applied. Perfusion to the extremity distal to the point of catheter insertion was checked and found to be adequate. Estimated Blood Loss: 1ml The patient tolerated the procedure well and there were no complications. Adelfo Wheatley MD Nov 23, 2017 4:52 am
[2017-11-23] MEDS ORDERED: SODIUM CHLOR 0.9% 1000 ML INJ 3,000 ML IV ONE (05:00)
[2017-11-23] MEDS: NOREPINEPHRINE-DEXTROSE DRIP 250 ML IV PRN ×4 (05:52→14:35)
[2017-11-23] MEDS ORDERED: SODIUM BICARBONATE 8.4% INJ 50 MEQ/50 ML SYR IV PUSH ONE ×2 (07:00→15:15)
[2017-11-23] MEDS ORDERED: MAGNESIUM SULFATE 1 GM PREMIX 100 ML IV ONE ×2 (07:00→10:00)
[2017-11-23] MEDS ORDERED: CALCIUM CHLORIDE INJ 1 GM in SODIUM CHLORIDE 0.9% INJ 100 ML IV ONE ×2 (07:00→16:00)
[2017-11-23] MEDS ORDERED: EPINEPHrine (1:1000) INJ 2 MG in DEXTROSE 5% IN WATER INJ 250 ML IV PRN ×2 (07:00)
[2017-11-23] MEDS ORDERED: SODIUM BICARBONATE 8.4% INJ 50 MEQ/50 ML SYR ONE (07:05)
[2017-11-23] MEDS ORDERED: PHENYLEPHRINE HCL 10 MG/ML VIAL ONE (07:14)
[2017-11-23] MEDS ORDERED: TERBUTALINE INJ 1 MG/ML AMP SQ PRN (07:15)
[2017-11-23] MEDS: PHENYLEPHRINE INJ 160 MG in DEXTROSE 5% IN WATE 500 ML INJ 484 ML IV PRN ×6 (07:15→15:00)
[2017-11-23] MEDS: SODIUM BICARBONATE 8.4% INJ 150 MEQ in WATER STERILE FOR INJ 850 ML IV SCH ×2 (07:42→13:40)
[2017-11-23] MEDS ORDERED: CHLORHEXIDINE 0.12% (ORAL KIT) 15 ML CUP MT SCH (08:00)
--- NOTE | 2017-11-23 08:03 | HHI.CCPN ---
Subjective Remarks/Hospital Course 67-year-old gentleman was brought as a cardiac arrest. According to chart review and report the patient has a history of hypertension. He has been having breathing problems for past couple of months, possibly some hemoptysis. [place]. He was at the [employer] restaurant when he got more short of breath walking up the stairs. EMS arrived and found him find him short of breath or respiratory difficulties. He was intubated by EMS. In route he lost pulses and they started CPR. Has been PEA since that time. In the emergency department he underwent prolonged CPR before he regained spontaneous circulation. The patient received a TPA infusion during the CPR since the pulmonary emboli was highly suspected. This was confirmed by CT angiogram obtained shortly after. Subjective 11/23: Currently on norepinephrine and vasopressin drips. Tachycardic and tachypneic on the ventilator. Blood from oral/rectal mucosa. Hemodynamically unstable. In multisystem organ failure including heme, elevated transaminase of shock liver and anuria Objective Vital Signs Date Time Temp Pulse Resp B/P (MAP) Pulse Ox O2 Delivery O2 Flow Rate FiO2 11/23/17 07:44 148 94/59 11/23/17 04:12 96 90 11/23/17 04:00 100.6 30 Intake and Output 11/23/17 11/23/17 11/23/17 07:59 15:59 23:59 Intake Total 6684 ml Output Total 1600 ml Balance 5084 ml Result Diagram: 11/23/17 0350 11/23/17 0350 Imaging Last Impressions Chest X-Ray 11/23/17 0000 Signed Impressions: Service Date/Time: Thursday, November 23, 2017 03:53 - CONCLUSION: 1. Mild basilar atelectasis. Right central line in superior vena cava. No effusion or pneumothorax. Fer Nielsen MD CT Angiography 11/22/17 0000 Signed Impressions: Service Date/Time: Wednesday, November 22, 2017 23:27 - CONCLUSION: 1. Numerous bilateral pulmonary emboli with basilar dependent atelectasis in the lungs. Fer Nielsen MD Objective Remarks GENERAL: 67-year-old male currently orotracheally intubated blood coming from rectum and oral mucosa SKIN: Cool and dry. Mottled bilateral lower extremities HEAD: Normocephalic. EYES: No scleral icterus. No injection or drainage. NECK: Supple, trachea midline. No JVD or lymphadenopathy. CARDIOVASCULAR: Tachycardic, IR. S1, S2 no S 4. Without murmur RESPIRATORY: Few crackles patient bases bilaterally. No wheeze GASTROINTESTINAL: Abdomen soft, non-tender, nondistended. Hypoactive bowel sounds appreciated MUSCULOSKELETAL: Trace bilateral lower extremity edema.. NEURO EXAM: GCS: 3T The patient is comatose and intubated. Positive gag and corneal reflex. Extends bilateral upper and lower extremities. Pupils are 3 mm and brisk bilaterally does not withdraw to pain. Negative Babinski sign. Urinary Catheter: Yes Assessment to: Continue Chong insert reason: Prolonged Immobilization Vascular Central Line Catheter: Yes Assessment to: Continue Date of Insertion: Nov 23, 2017 Line: Central Venous Catheter Side: Right Location: Internal, Jugular A/P Assessment and Plan Neuro/Psych: Acute encephalopathic state likely anoxic ischemic injury Patient is currently on midazolam drip at 4 mg an hour and fentanyl drip at 150 mcg an hour sedation/analgesia while intubated Goal of RASS of -2 Daily sedation vacation when appropriate CT brain when able Check ammonia level in a.m. CV: Out of hospital cardiac arrest secondary to pulmonary embolism Elevated troponin History of hypertension A flutter History of dyslipidemia History of claudication Lactic acidosis Prolonged resuscitation greater than 35 minutes Currently on vasopressin drip at 0.04 mcg/min, phenylephrine drip 140 mcg/min and norepinephrine drip at 16 mcg/min to maintain mean arterial pressure greater than equal 65 Sterile water with 3 ampules of sodium bicarbonate 150 cc an hour Holding quinine 324 mg p.o. daily At home on the nebivolol 10 mg daily. Hold while on multiple vasopressors Holding rosuvastatin 10 mg by mouth daily for elevated transaminases On aspirin 325 mg at home daily. Will start on baby aspirin 81 mg daily in light of bleeding 2D echocardiogram pending Received 12 mg adenosine which revealed atrial flutter. Will give 1 dose of digoxin 0.5 mg IV 1 now. There is no diltiazem available at [place]. We will give one-time dose amiodarone due to elevated transaminases and on multiple vasopressors for a flutter. Will follow-up Serial troponins Serial lactates until cleared. Currently 5.0. Consider dobutamine drip with low oxygen extraction VBG Resp: Bilateral pulmonary embolism Acute hypoxemic respiratory failure [facility] 18/550/ Ventilator bundle Albuterol/ipratropium aerosols every 6 hours with albuterol aerosols every 2 hours as needed dyspnea CT pulmonary angiogram revealed bilateral pulmonary levels with bilateral dependent atelectasis Status post alteplase 150 mg total Currently heparin drip at 1400 units an hour GI: Elevated transaminases Hypoalbuminemia Likely secondary to shock liver/hypoperfusion and multiple boluses Check ammonia level in a.m. Currently n.p.o. Gastric tube to low intermittent wall suction Pantoprazole drip at 8 mg an hour Docusate sodium/senna 1 tablet twice daily for bowel regimen : Chong catheter has been placed for accurate I's and O's in a critically ill patient Bladder scan as needed if no output Endo: History of gout Sliding scale insulin with Novulog with Accu-Cheks to maintain euglycemia/every 6 hours low regimen Check TSH Holding allopurinol 3 mg p.o. daily. Resume clinically indicated Renal: Acute kidney injury Check urine electrolytes and eosinophils Monitor urine output Accurate I's and O's Renal ultrasound pending Currently on sterile water with 3 ampules sodium bicarbonate 150 cc an hour Heme: Leukocytosis Monitor CBC daily. Follow trends Doppler bilateral lower extremities pending ID: Monitor for signs and symptoms of infection MSK: PT evaluate and treat FEN: Hypocalcemia Hypophosphatemia Hypomagnesia 1 g calcium chloride, 2 g mag sulfate IV 1 now. 15 mmol sodium phosphate 1 now. Recheck in a.m. Access Right IJ CVL day #1 placed 11/22 Left femoral arterial line placed 11/[address] Heath Prophylaxis -GI -pantoprazole drip -DVT -SCD/heparin drip Critical Care: The total critical care time was 35 minutes. Time to perform other separately billable procedures was not included in the critical care time. Spoke to son/healthcare proxy Zachery Hdez at 1635 this patient went into cardiopulmonary arrest. Patient with bilateral PE with decreased ejection fraction bedside echo multisystem organ failure with worsening acidosis and vasopressor requirements. Maximize on 3 vasopressors. When asystole. Requested no continuation CPR which was being initiated. Time of 1637. Ernesto Ventura MD Nov 23, 2017 08:03
[2017-11-23] MEDS ORDERED: ROSU1TAB6 PO (08:06)
[2017-11-23] MEDS ORDERED: [UNRECOGNIZED DRUG - CODE] (08:06)
[2017-11-23] MEDS ORDERED: BYST10TA2 PO (08:06)
[2017-11-23] MEDS ORDERED: SACC1CAP3 PO (08:06)
[2017-11-23] MEDS ORDERED: ALLO300T2 PO (08:06)
[2017-11-23] MEDS ORDERED: ASPI-183 PO (08:06)
[2017-11-23] MEDS ORDERED: SODIUM CHLORIDE 0.9% FLUSH 10 ML FLUSH IV FLUSH SCH (09:00)
[2017-11-23] MEDS ORDERED: DOCUSATE SODIUM 50 MG/SENNA 8.6 MG TAB PO SCH (09:00)
[2017-11-23] MEDS: ARTIFICIAL TEARS OPTH SOLN 15 ML BTL EACH EYE SCH ×2 (09:00→13:00)
[2017-11-23] MEDS ORDERED: FAMOTIDINE 20 MG/2 ML VIAL IV PUSH SCH (09:00)
[2017-11-23] MEDS ORDERED: ADENOSINE IV SOLN 3 MG/ML 2 ML VIAL IV PUSH ONE (09:30)
[2017-11-23] MEDS ORDERED: MIDAZOLAM 100 MG/100 ML INJ 100 ML IV PRN (09:30)
[2017-11-23] MEDS ORDERED: DIGOXIN 0.5 MG/2 ML VIAL IV PUSH ONE (09:45)
[2017-11-23] MEDS ORDERED: DILTIAZEM HCL 25 MG/5 ML VIAL IV PUSH ONE (09:45)
[2017-11-23] MEDS ORDERED: DILTIAZEM INJ 125 MG in SODIUM CHLORIDE 0.9% INJ 100 ML IV PRN (09:45)
[2017-11-23] MEDS ORDERED: AMIODARONE INJ 150 MG in DEXTROSE 5% IN WATER 100ML INJ 97 ML IV ONE ×2 (09:57)
[2017-11-23] MEDS ORDERED: POTASSIUM CHLOR 10 MEQ PREMIX 100 ML IV ONE (10:00)
[2017-11-23] MEDS ORDERED: DEXTROSE 50% IN WATER 50 ML VIAL(D50) IV PUSH PRN (10:15)
[2017-11-23] MEDS ORDERED: GLUCAGON 1 MG/ML VIAL OTHER PRN (10:15)
--- NOTE | 2017-11-23 11:07 | RADRPT ---
EXAM DATE/TIME: 11/23/2017 10:06 [facility] COMPARISON: No previous studies available for comparison. INDICATIONS : Edema. MEDICAL HISTORY : Hypertension. SURGICAL HISTORY : None. ENCOUNTER: Initial ACUITY: 1 day PAIN SCORE: Non-responsive LOCATION: Bilateral legs. TECHNIQUE: Venous ultrasound of the left and right leg was performed from the inguinal ligament to the proximal calf. Real-time, color Doppler and spectral tracing, compression and augmentation techniques were us ed. FINDINGS: RIGHT LEG: Slow venous flow is noted. The venous thrombosis is present in the right popliteal and peroneal veins which is nonocclusive and partially compressible. Occlusive thrombus is present in the right posteri or tibial vein. The common femoral and superficial femoral veins are patent. LEFT LEG: Slow venous flow is present. There is normal compressibility of the deep venous system from the ingui nal region to the proximal calf. No echogenic clot is seen in the lumen of the common femoral, femor al, popliteal, and posterior tibial veins. There is a normal response of the venous system to proxim al and distal augmentation and respiration. CONCLUSION: 1. Occlusive thrombus in the right posterior tibial vein with nonocclusive thrombus in the right popl iteal vein and peroneal veins. 2. The left deep venous system is patent. Jose Juan Vincent MD on November 23, 2017 at 11:04 Board Certified Radiologist. This report was verified electronically.
--- NOTE | 2017-11-23 11:11 | RADRPT ---
EXAM DATE/TIME: 11/23/2017 09:51 [facility] COMPARISON: No previous studies available for comparison. INDICATIONS : Increased BUN/creatinine. MEDICAL HISTORY : Hypertension. SURGICAL HISTORY : None. ENCOUNTER: Initial ACUITY: 1 day PAIN SCORE: Nonresponsive. LOCATION: Bilateral flank MEASUREMENTS: RIGHT KIDNEY: 12.4 x 5.2 x 6.2 cm LEFT KIDNEY: 12.0 x 4.9 x 4.8 cm FINDINGS: RIGHT KIDNEY: Renal cortex is normal in thickness with mild increased cortical echogenicity.. No hydronephrosis, s tone, or mass. LEFT KIDNEY: Renal cortex is normal in thickness with mild increased cortical echogenicity.. No hydronephrosis, s tone, or mass. BLADDER: A Chong catheter is present the bladder is not well-visualized CONCLUSION: 1. No evidence of hydronephrosis. 2. Increased cortical echogenicity most characteristic of medical renal disease. 3. Chong catheter in the bladder. Jose Juan Vincent MD on November 23, 2017 at 11:08 Board Certified Radiologist. This report was verified electronically.
[2017-11-23] MEDS ORDERED: PANTOPRAZOLE INJ 80 MG in SODIUM CHLORIDE 0.9% INJ 100 ML IV SCH (12:00)
[2017-11-23] MEDS ORDERED: INSULIN ASPART SUPPLEMENTAL SCALE SQ SCH (12:00)
--- NOTE | 2017-11-23 12:14 | EKG ---
Date Performed: 11/22/2017 Time Performed: 21:50:00 PTAGE: 67 years EKG: SINUS TACHYCARDIA RIGHT BUNDLE BRANCH BLOCK MARKED ST DEPRESSION, CONSIDER SUBENDOCARDIAL INJURY ABNORMAL ECG NO PREVIOUS TRACING DOCTOR: Jeff Wood Interpretating Date/Time 11/23/2017 12:12:37
--- NOTE | 2017-11-23 12:34 | EKG ---
Date Performed: 11/23/2017 Time Performed: 05:21:34 PTAGE: 67 years EKG: Atrial flutter is 2:1 block Inferior/lateral T wave changes are nonspecific Borderline ECG Compared to PREVIOUS TRACING , right bundle branch block is no longer present, and atrial flutter has replaced sinus tachycardia. PREVIOUS TRACIN11/22/2017 21.50.00 DOCTOR: Jeff Wood Interpretating Date/Time 11/23/2017 12:33:22
--- NOTE | 2017-11-23 13:36 | ECHRPT ---
Indication: Shortness of breath CONCLUSIONS The left ventricular systolic function is mildly reduced with an estimated ejection fraction in the range of 45- 50%. Wall thickness is measured at the upper limits of normal. Normal left ventricular size. Technically difficult study due to poor acoustic windows BP: / HR: 150 Rhythm: Other MEASUREMENTS (Male / Female) Normal Values Technical Quality:Poor 2D ECHO LV Diastolic Diameter PLAX 5.1 cm 4.2 - 5.9 / 3.9 - 5.3 cm LV Systolic Diameter PLAX 4.2 cm IVS Diastolic Thickness 1.1 cm 0.6 - 1.0 / 0.6 - 0.9 cm LVPW Diastolic Thickness 1.1 cm 0.6 - 1.0 / 0.6 - 0.9 cm LV Relative Wall Thickness 0.4 LVOT Diameter 2.2 cm M-MODE Aortic Root Diameter MM 3.2 cm LA Systolic Diameter MM 4.1 cm LA Ao Ratio MM 1.3 AV Cusp Separation MM 1.7 cm DOPPLER AV Peak Velocity 61.1 cm/s AV Peak Gradient 1.5 mmHg LVOT Peak Velocity 48.4 cm/s LVOT Peak Gradient 0.9 mmHg AV Area Cont Eq pk 3.0 cm LV E' Septal Velocity 9.3 cm/s FINDINGS LEFT VENTRICLE The left ventricular systolic function is mildly reduced with an estimated ejection fraction in the range of 45- 50%. Wall thickness is measured at the upper limits of normal. Normal left ventricular size. RIGHT VENTRICLE Normal right ventricular size and systolic function. LEFT ATRIUM The left atrial size is normal. RIGHT ATRIUM The right atrial size is normal. ATRIAL SEPTUM Normal atrial septal thickness without atrial level shunting by limited color doppler interrogation. AORTA The aortic root and proximal ascending aorta are normal in size on limited imaging. MITRAL VALVE Structurally normal mitral valve. No mitral valve stenosis or regurgitation. AORTIC VALVE Trileaflet aortic valve. No aortic valve stenosis or regurgitation. TRICUSPID VALVE Structurally normal tricuspid valve. No tricuspid valve stenosis or regurgitation. PULMONARY VALVE The pulmonary valve is not well visualized. VESSELS The inferior vena cava is normal in size. PERICARDIUM No pericardial effusion. Nam Lam MD, FACC (Electronically Signed) Final Date:23 November 2017 13:35
[2017-11-23 14:26] LABS: CALCIUM 6.6 MG/DL (8.5-10.1); CREATININE 3.87 MG/DL (0.60-1.30); MAGNESIUM 2.1 MG/DL (1.5-2.5); PHOSPHORUS 3.1 MG/DL (2.5-4.9)
[2017-11-23 14:33] LABS: TROPONIN I 12.6 NG/ML (0.02-0.05)
[2017-11-23] MEDS ORDERED: HEPARIN-D5W 25,000 U/250 ML 250 ML IV PRN (15:00)
[2017-11-23 15:04] LABS: CALCIUM-PROTEIN CORRECTED 8.2 MG/DL (8.5-10.1); TOTAL PROTEIN 4.1 GM/DL (6.4-8.2)
[2017-11-23] MEDS ORDERED: DOBUTamine INJ 1,000 MG in DEXTROSE 5% IN WATER INJ 170 ML IV PRN ×2 (15:15)
[2017-11-23] MEDS ORDERED: ROCURONIUM INJ 100 MG/10 ML VIAL IV ONE (15:15)
[2017-11-23] MEDS ORDERED: NOREPINEPHRINE 16 MG/D5W 250 ML IV PRN ×2 (16:00)
--- NOTE | 2017-11-23 16:38 | DEATH SUM ---
Pronouncement Date Pronounced : Nov 23, 2017 Time Of : 16:37 Pronouncement Called to pronounce of patient. Identified patient as Zachery Hdez with wrist band MR# [id number]. Patient with no cardiac activity in 2 separate leads and no palpable/auscible cardiac activity. Patient with no spontaneous respirations, no corneal reflex or response to painful stimuli. Pupils fixed and dilated. Preliminary Cause of : Respiratory arrest Ernesto Ventura MD Nov 23, 2017 16:38
--- NOTE | 2017-11-23 16:38 | HHI.DS ---
Summary Note Date of : Nov 23, 2017 Time Of : 16:37 Admission Date Nov 22, 2017 at 21:49 Admitting Diagnosis Postarrest, respiratory failure Diagnosis at Time of : (1) Cardiac arrest ICD Code: I46.9 - Cardiac arrest, cause unspecified (2) Pulmonary embolism ICD Code: I26.99 - Other pulmonary embolism without acute cor pulmonale Brief History 67-year-old gentleman was brought as a cardiac arrest. According to chart review and report the patient has a history of hypertension. He has been having breathing problems for past couple of months, possibly some hemoptysis. [place]. He was at the [facility] when he got more short of breath walking up the stairs. EMS arrived and found him find him short of breath or respiratory difficulties. He was intubated by EMS. In route he lost pulses and they started CPR. Has been PEA since that time. In the emergency department he underwent prolonged CPR before he regained spontaneous circulation. The patient received a TPA infusion during the CPR since the pulmonary emboli was highly suspected. This was confirmed by CT angiogram obtained shortly after. CBC/BMP: 11/23/17 0350 11/23/17 1310 Significant Findings Laboratory Tests Test 11/22/17 21:40 11/22/17 21:45 11/22/17 21:50 11/22/17 22:20 Blood Gas HCO3 11 mmol/L (22-26) Blood Gas Base Excess -20.6 mmol/L (-2-2) Blood Gas Oxygen Saturation 88 % (90-100) Arterial Blood pH 6.82 (7.380-7.420) Arterial Blood Partial Pressure CO2 72 mmHg (38-42) Red Blood Count 4.11 MIL/MM3 (4.50-5.90) Hemoglobin 12.9 GM/DL (13.0-17.0) Platelet Count 88 TH/MM3 (150-450) Band Neutrophils % 8 % (0-6) Metamyelocytes 3 % (0-1) Myelocytes 2 % (0-0) Platelet Estimate LOW (NORMAL) Prothrombin Time 35.4 SEC (9.8-11.6) Activated Partial Thromboplast Time 128.8 SEC (24.3-30.1) Creatinine 2.02 MG/DL (0.60-1.30) Random Glucose 360 MG/DL (74-106) Total Protein 3.9 GM/DL (6.4-8.2) Albumin 2.2 GM/DL (3.4-5.0) Calcium Level 7.0 MG/DL (8.5-10.1) Aspartate Amino Transf (AST/SGOT) 143 U/L (15-37) Alanine Aminotransferase (ALT/SGPT) 115 U/L (12-78) Sodium Level 147 MEQ/L (136-145) Chloride Level 109 MEQ/L (98-107) Carbon Dioxide Level 15.5 MEQ/L (21.0-32.0) Anion Gap 23 MEQ/L (5-15) Estimat Glomerular Filtration Rate 29 ML/MIN (>89) Troponin I 0.07 NG/ML (0.02-0.05) Lactic Acid Level 17.4 mmol/L (0.4-2.0) Test 11/23/17 00:11 11/23/17 00:31 11/23/17 00:50 11/23/17 02:00 White Blood Count 27.6 TH/MM3 (4.0-11.0) 25.3 TH/MM3 (4.0-11.0) Prothrombin Time 36.6 SEC (9.8-11.6) 35.2 SEC (9.8-11.6) Activated Partial Thromboplast Time GREATER THAN 277.5 SEC GREATER THAN 277.5 SEC 148.0 SEC (24.3-30.1) Lactic Acid Level 8.5 mmol/L (0.4-2.0) Test 11/23/17 03:50 11/23/17 04:27 11/23/17 07:25 11/23/17 07:26 White Blood Count 25.7 TH/MM3 (4.0-11.0) Neutrophils (%) (Auto) 92.1 % (16.0-70.0) Lymphocytes (%) (Auto) 5.5 % (9.0-44.0) Neutrophils # (Auto) 23.6 TH/MM3 (1.8-7.7) Activated Partial Thromboplast Time 54.6 SEC (24.3-30.1) Blood Urea Nitrogen 19 MG/DL (7-18) Creatinine 2.45 MG/DL (0.60-1.30) Random Glucose 190 MG/DL (74-106) Total Protein 4.6 GM/DL (6.4-8.2) Albumin 2.6 GM/DL (3.4-5.0) Calcium Level 6.3 MG/DL (8.5-10.1) Phosphorus Level 2.4 MG/DL (2.5-4.9) Aspartate Amino Transf (AST/SGOT) 484 U/L (15-37) Alanine Aminotransferase (ALT/SGPT) 225 U/L (12-78) Chloride Level 116 MEQ/L (98-107) Carbon Dioxide Level 15.4 MEQ/L (21.0-32.0) Estimat Glomerular Filtration Rate 26 ML/MIN (>89) Lactic Acid Level 5.0 mmol/L (0.4-2.0) Protein Corrected Calcium 7.5 MG/DL (8.5-10.1) Troponin I 10.30 NG/ML (0.02-0.05) Blood Gas HCO3 14 mmol/L (22-26) 13 mmol/L (22-26) Blood Gas Base Excess -11.8 mmol/L (-2-2) -12.1 mmol/L (-2-2) Arterial Blood pH 7.25 (7.380-7.420) 7.28 (7.380-7.420) Arterial Blood Partial Pressure CO2 33 mmHg (38-42) 29 mmHg (38-42) Arterial Blood Partial Pressure O2 123 mmHg (61-120) 232 mmHg (61-120) Arterial Blood Oxygen Content 22.7 Vol % (12.0-20.0) Blood Gas Hemoglobin 16.3 G/DL (12.0-16.0) Venous Blood pH 7.20 (7.360-7.400) Venous Blood Partial Pressure CO2 50 mmHg (44-48) Venous Blood Partial Pressure O2 31 mmHg (35-40) Venous Blood HCO3 19 mmol/L (22-26) Venous Blood Oxygen Saturation 49 % (70-76) Venous Blood Base Excess -8.0 mmol/L (-2-2) Test 11/23/17 08:41 11/23/17 13:00 11/23/17 13:10 11/23/17 14:46 Activated Partial Thromboplast Time 101.7 SEC (24.3-30.1) 53.3 SEC (24.3-30.1) Blood Urea Nitrogen 27 MG/DL (7-18) Creatinine 3.87 MG/DL (0.60-1.30) Random Glucose 202 MG/DL (74-106) Total Protein 4.1 GM/DL (6.4-8.2) Calcium Level 6.6 MG/DL (8.5-10.1) Chloride Level 111 MEQ/L (98-107) Carbon Dioxide Level 16.0 MEQ/L (21.0-32.0) Estimat Glomerular Filtration Rate 16 ML/MIN (>89) Lactic Acid Level 6.0 mmol/L (0.4-2.0) Protein Corrected Calcium 8.2 MG/DL (8.5-10.1) Troponin I 12.60 NG/ML (0.02-0.05) Blood Gas HCO3 13 mmol/L (22-26) Blood Gas Base Excess -13.5 mmol/L (-2-2) Blood Gas Oxygen Saturation 89 % (90-100) Arterial Blood pH 7.17 (7.380-7.420) Imaging Last Impressions Chest X-Ray 11/23/17 0000 Signed Impressions: Service Date/Time: Thursday, November 23, 2017 03:53 - CONCLUSION: 1. Mild basilar atelectasis. Right central line in superior vena cava. No effusion or pneumothorax. Fer Nielsen MD CT Angiography 11/22/17 0000 Signed Impressions: Service Date/Time: Wednesday, November 22, 2017 23:27 - CONCLUSION: 1. Numerous bilateral pulmonary emboli with basilar dependent atelectasis in the lungs. MD Audrey Rooney Louis M. MD Nov 23, 2017 16:38
--- NOTE | 2017-11-23 19:35 | MG ---
cc: Michael Mason MD, PhD TEST NUMBER: [id number] TECHNIQUE: A 17-channel EEG. DESCRIPTION: Background rhythm is generally slow and the delta frequency 3-4 Hz. Amplitude is 10-20 mV. There are no lateralizing features seen. There are no epileptiform features identified. Photic stimulation does not elicit a driving response. INTERPRETATION: Abnormal study consistent with severe encephalopathy. Michael Mason MD, PhD MIRIAM/SB , 07:24 PM , 07:34 PM
[2017-11-23] MEDS ORDERED: NALOXONE HCL 4 MG/10 ML MDV IV ONE (20:24)
[2017-11-23] MEDS ORDERED: EPINEPHrine HCL (1:10,000) 1 MG/10 ML SYRINGE IV ONE (20:24)
[2017-11-23] MEDS ORDERED: WATER BACTERIOSTATIC 30 ML VIAL IV ONE (20:24)
[2017-11-23] MEDS ORDERED: SODIUM CHLORIDE 0.9% 20 ML VIAL IV ONE (20:24)
[2017-11-23] MEDS ORDERED: DEXTROSE 50% IN WATER 50 ML SYRINGE IV ONE (20:24)
[2017-11-24] MEDS ORDERED: ASPIRIN 81 MG CHEW TAB CHEW SCH (09:00)
--- NOTE | 2017-11-24 09:14 | EKG ---
Date Performed: 11/23/2017 Time Performed: 09:18:08 PTAGE: 67 years EKG: ATRIAL FLUTTER WITH RVR Since the PREVIOUS TRACING , no significant change noted DOCTOR: Pako Rodriguez Interpretating Date/Time 11/24/2017 09:12:39
== END 2017-11-23 20:25 | disposition expired | DRG 208 ==
LOC: NEPE 20:53 → NEDA 21:49 → EDBD 21:49 → MERGE 21:49 → N03A 23:43
PROVIDERS: ADMIT Internal Medicine Critical Care Medicine; ATTEND Internal Medicine Critical Care Medicine
PROC: 5A12012 Performance of Cardiac Output, Single, Manual (ICD-10-PCS; principal; 2017-11-22)
PROC: 3E03317 Introduction of Other Thrombolytic into Peripheral Vein, Percutaneous Approach (ICD-10-PCS; 2017-11-22)
PROC: 5A1935Z Respiratory Ventilation, Less than 24 Consecutive Hours (ICD-10-PCS; 2017-11-23)
PROC: 05HM33Z Insertion of Infusion Device into Right Internal Jugular Vein, Percutaneous Approach (ICD-10-PCS; 2017-11-23)
PROC: B543ZZA Ultrasonography of Right Jugular Veins, Guidance (ICD-10-PCS; 2017-11-23)
DX: I26.99 Other pulmonary embolism without acute cor pulmonale (principal); J96.01 Acute respiratory failure with hypoxia; I46.9 Cardiac arrest, cause unspecified; K72.00 Acute and subacute hepatic failure without coma; G93.1 Anoxic brain damage, not elsewhere classified; I48.92 Unspecified atrial flutter; E87.2 Acidosis; N17.9 Acute kidney failure, unspecified; I10 Essential (primary) hypertension; E78.5 Hyperlipidemia, unspecified; R74.0 Nonspecific elevation of levels of transaminase and lactic acid dehydrogenase [LDH]; E88.09 Other disorders of plasma-protein metabolism, not elsewhere classified; M10.9 Gout, unspecified; E83.51 Hypocalcemia; E83.39 Other disorders of phosphorus metabolism; E83.42 Hypomagnesemia
CPT/HCPCS: 36556; 71045; 71275; 76775; 80048; 80053; 82805; 82948; 83605; 83735; 84100; 84155; 84484; 85007; 85025; 85027; 85610; 85730; 92950; 93005; 93306; 93970; 94002; 94003; 94664; 95819; 96365; 99292; C9113; J0153; J0171; J0282; J1160; J1250; J1644; J2250; J2310; J2370; J3010; J3475; J3480; J7030; J7060; J7070; Q9967